=== PATIENT | male | born 1975 | race Asian ===

== ENCOUNTER 2016-11-02 07:41 | Emergency (ER) | payer SELFPAY ==
[~2016-11-02] VITALS: Ht 167.6 cm; Wt 110.2 kg
[~2016-11-02 07:41] MED LIST: ALBUTEROL SULF8.5 GM IH; COLCRYS0.6 MG PO; INDOCIN25 MG PO; INDOCIN50 MG PO; Lisinopril PO; MOTRIN400 MG PO; NAPROSYN500 MG PO; PERCOCET 5/31 TABLET PO; PREDNISONE20 MG PO; PROVENTIL,2.5 MG/3 M IH; ULTRAM50 MG PO; VENTOLIN HFA18 GM IH; ZESTORETIC 20-1 EAC1 NG; ZESTORETIC 20-1 EAC1 PO
[2016-11-02] MEDS ORDERED: NAPROXEN500 MG PO (10:23)
[2016-11-02 11:25] VITALS: BP 138/94
[2016-11-03] MEDS ORDERED: INDOCIN50 MG PO (00:17)
[2016-11-03] MEDS ORDERED: PERCOCET 5/31 TABLET PO (00:17)
== END 2016-11-02 11:37 | disposition home or self-care (01) ==
LOC: EME 07:41
DX: S93.601A Unspecified sprain of right foot, initial encounter (principal); X58.XXXA Exposure to other specified factors, initial encounter; M79.662 Pain in left lower leg
CPT/HCPCS: 73630; 93971; 99281; 99284; J1885

== ENCOUNTER 2016-11-02 22:14 | Emergency (ER) | payer SELFPAY ==
[~2016-11-02] VITALS: Ht 167.6 cm; Wt 110.0 kg
[~2016-11-02 22:14] MED LIST changes: +NAPROXEN500 MG PO
[2016-11-02 22:28] VITALS: BP 126/96
[2016-11-03] MEDS ORDERED: PERCOCET 5/31 TABLET PO (00:17)
[2016-11-03] MEDS ORDERED: INDOCIN50 MG PO (00:17)
== END 2016-11-03 00:42 | disposition home or self-care (01) ==
LOC: EME 22:14
DX: M10.9 Gout, unspecified (principal)
CPT/HCPCS: 99281; 99284